=== PATIENT | female | born 1945 | race Caucasian/White ===

== ENCOUNTER 2016-10-29 14:30 | Emergency (ER) | payer MEDICARE ==
[~2016-10-29] VITALS: Ht 167.6 cm; Wt 48.1 kg
[~2016-10-29 14:30] MED LIST: ADVA500A INH; LEXA20TA PO; MORP1TAB24 IMPLANPUMP; OLAN2.5T PO; PANT40TA3 PO; PROM25TA5 PO; VENTAER INH; XANA1TAB2 PO; ZOFR4TAB3 SL
[2016-10-29 14:35] VITALS: BP 112/78; PULSE 105; RESP 16; TEMP 98.3
[2016-10-29] MEDS ORDERED: methylPREDNISolone SOD SUCC 125 MG/2 ML VIAL IVP ONE (15:15)
[2016-10-29] MEDS ORDERED: SODIUM CHLORIDE 0.9% FLUSH 5 ML FLUSH IVF PRN (15:15)
--- NOTE | 2016-10-29 15:17 | PD ---
HPI Chief Complaint: Edema Time Seen by Provider: 14:48 Travel History International Travel<30 days: No Contact w/Intl Traveler<30days: No Traveled to known affect area: No History of Present Illness HPI 71yo F with PMH of COPD on 4 L NC was sent in by PMD for ultrasound of her leg to r/o DVT. Pt has been having right lower extremity edema and throbbing for 3- 4 days. Denies any trauma she can remember. Pt also with worsening sob and chest pain since yesterday. Chest pain is bilateral, under her ribs and worst with breathing. Denies any fever, cough, n/v, abdominal pain, focal weakness and numbness. States she has history of cluster headaches and she is having one now but nothing really helps and she has it frequently. PFSH Past Medical History Arthritis: No Asthma: Yes (24 HOUR / 4 L OXYGEN ) Autoimmune Disease: No Anxiety: Yes Depression: Yes Heart Rhythm Problems: No Cancer: No Cardiovascular Problems: No High Cholesterol: No Chemotherapy: No Chest Pain: No Congestive Heart Failure: No COPD: Yes Cerebrovascular Accident: No ( unsure) Diabetes: No Endocrine: No GERD: Yes Genitourinary: Yes (bladder infection) Headaches: Yes (cluster headaches) Hiatal Hernia: No Hypertension: No Immune Disorder: No Implanted Vascular Access Dvce: Yes (MORPHINE PUMP UNKNOWN DOSING ) Kidney Stones: No Musculoskeletal: No Neurologic: Yes Psychiatric: No Reproductive: No Respiratory: Yes Myocardial Infarction: No Radiation Therapy: No Renal Failure: No Seizures: No Sickle Cell Disease: No Sleep Apnea: No Thyroid Disease: No Ulcer: No Past Surgical History Abdominal Surgery: No AICD: No Arteriovenous Shunt: No Body Medical Devices: implanted morphine pump Cardiac Surgery: No Ear Surgery: No Endocrine Surgery: No Eye Surgery: No Genitourinary Surgery: No Gynecologic Surgery: Yes (total hysterectomy) Hysterectomy: Yes Insulin Pump: No Joint Replacement: No Neurologic Surgery: Yes (craniotomy for aneurysm-CLIP ) Oral Surgery: No Pacemaker: No Thoracic Surgery: Yes (right lobectomy - BACTERIAL INFECTION) Other Surgery: Yes Social History Alcohol Use: No Tobacco Use: Yes (08/31 PPD) Substance Use: No Allergies-Medications (Allergen,Severity, Reaction): Coded Allergies: Benadryl (Verified Allergy, Severe, 10/29/16) ALL ANTIHISTAMINES Codeine (Verified Allergy, Severe, 10/29/16) Dilantin (Verified Allergy, Severe, 10/29/16) Penicillin (Verified Allergy, Severe, 10/29/16) Aubrey (Verified Allergy, Unknown, UNKNOWN, 10/29/16) Dilaudid (Verified Adverse Reaction, Severe, Respiratory Failure, 10/29/16) Patient's spouse reports that Dilaudid/hydromorphone has caused severe altered mental status and respiratory distress, even after a "small" dose. Patient's spouse unsure of the exact amount of that "small" dose. Reported Meds & Prescriptions Reported Meds & Active Scripts Active Keflex (Cephalexin) 500 Mg Cap 500 Mg PO Q6H Phenergan (Promethazine HCl) 25 Mg Tab 25 Mg PO Q6H PRN Zofran Odt (Ondansetron Odt) 4 Mg Tab 4 Mg SL Q6HR PRN Pantoprazole (Pantoprazole Sodium) 40 Mg Tab 40 Mg PO DAILY 30 Days Olanzapine 2.5 Mg Tab 2.5 Mg PO HS 30 Days Reported Morphine ER (Morphine Sulfate) 15 Mg Tab 15 Mg IMPLANPUMP CONTINUOUS Xanax (Alprazolam) 1 Mg Tab 1 Mg PO Q8H PRN Lexapro (Escitalopram Oxalate) 20 Mg Tab 20 Mg PO DAILY Ventolin Hfa 18 GM Inh (Albuterol Sulfate) 90 Mcg/Act Aer 2 Puff INH Q4H PRN Advair Diskus Inh (Fluticasone-Salmeterol Inh) 500-50 Mcg/Blist Aer 1 Puff INH BID Rinse mouth after use. Review of Systems Except as stated in HPI: all other systems reviewed are Neg Physical Exam Narrative GENERAL: 71yo F not in acute distress. SKIN: Warm and dry. HEAD: Atraumatic. Normocephalic. EYES: Pupils equal and round. No scleral icterus. No injection or drainage. ENT: No nasal bleeding or discharge. Mucous membranes pink and moist. NECK: Trachea midline. No JVD. CARDIOVASCULAR: Regular rate and rhythm. No murmur appreciated. RESPIRATORY: Expiratory wheezing bilaterally. Speaking in complete sentences. GASTROINTESTINAL: Abdomen soft, non-tender, nondistended. MUSCULOSKELETAL: RLE: +Edema in right foot to tib/fib. Distal pulses intact. Sensation intact. Mild erythema. NEUROLOGICAL: Awake and alert. No obvious cranial nerve deficits. Motor grossly within normal limits. Normal speech. PSYCHIATRIC: Appropriate mood and affect; insight and judgment normal. Data Data Last Documented VS Vital Signs Date Time Temp Pulse Resp B/P Pulse Ox O2 Delivery O2 Flow Rate FiO2 10/29/16 17:27 88 16 127/71 92 10/29/16 16:59 Nasal Cannula 2 10/29/16 14:35 98.3 Orders Complete Blood Count With Diff (10/29/16 15:09) Basic Metabolic Panel (Bmp) (10/29/16 15:09) B-Type Natriuretic Peptide (10/29/16 15:09) Act Partial Throm Time (Ptt) (10/29/16 15:09) Prothrombin Time / Inr (Pt) (10/29/16 15:09) Ckmb (Isoenzyme) Profile (10/29/16 15:09) Troponin I (10/29/16 15:09) Arterial Blood Gas (Abg) (10/29/16 15:09) Iv Access Insert/Monitor (10/29/16 15:09) Electrocardiogram (10/29/16 15:09) Ecg Monitoring (10/29/16 15:09) Oximetry (10/29/16 15:09) Oxygen Administration (10/29/16 15:09) Chest, Single Ap (10/29/16 15:09) Sodium Chloride 0.9% Flush (Ns Flush) (10/29/16 15:15) Methylprednisolone So Succ Inj (Solumedr (10/29/16 15:15) Albuterol-Ipratropium Neb (Duoneb Neb) (10/29/16 15:15) Us Leg Venous Doppler (10/29/16 ) Potassium Chloride (Kcl) (10/29/16 17:15) Cephalexin (Keflex) (10/29/16 17:15) Labs Laboratory Tests Test 10/29/16 10/29/16 15:30 16:05 White Blood Count 7.3 TH/MM3 Red Blood Count 4.02 MIL/MM3 Hemoglobin 12.0 GM/DL Hematocrit 38.0 % Mean Corpuscular Volume 94.6 FL Mean Corpuscular Hemoglobin 29.9 PG Mean Corpuscular Hemoglobin 31.6 % Concent Red Cell Distribution Width 15.4 % Platelet Count 130 TH/MM3 Mean Platelet Volume 9.6 FL Neutrophils (%) (Auto) 61.6 % Lymphocytes (%) (Auto) 22.6 % Monocytes (%) (Auto) 13.6 % Eosinophils (%) (Auto) 1.3 % Basophils (%) (Auto) 0.9 % Neutrophils # (Auto) 4.5 TH/MM3 Lymphocytes # (Auto) 1.6 TH/MM3 Monocytes # (Auto) 1.0 TH/MM3 Eosinophils # (Auto) 0.1 TH/MM3 Basophils # (Auto) 0.1 TH/MM3 CBC Comment DIFF FINAL Differential Comment Prothrombin Time 10.2 SEC Prothromb Time International 0.9 RATIO Ratio Activated Partial 25.1 SEC Thromboplast Time Sodium Level 143 MEQ/L Potassium Level 3.4 MEQ/L Chloride Level 96 MEQ/L Carbon Dioxide Level 43.6 MEQ/L Anion Gap 3 MEQ/L Blood Urea Nitrogen 6 MG/DL Creatinine 0.51 MG/DL Estimat Glomerular Filtration 120 ML/MIN Rate Random Glucose 81 MG/DL Calcium Level 8.4 MG/DL Total Creatine Kinase 59 U/L Troponin I LESS THAN 0.02 NG/ML B-Type Natriuretic Peptide 46 PG/ML Blood Gas Puncture Site RT BRACHIAL Blood Gas Patient Temperature 98.6 Blood Gas HCO3 44 mmol/L Blood Gas Base Excess 16.9 mmol/L Blood Gas Oxygen Saturation 94 % Arterial Blood pH 7.33 Arterial Blood Partial 86 mmHG Pressure CO2 Arterial Blood Partial 156 mmHG Pressure O2 Arterial Blood Oxygen Content 14.3 Vol % Arterial Blood 4.8 % Carboxyhemoglobin Arterial Blood Methemoglobin 1.6 % Blood Gas Hemoglobin 10.6 G/DL Oxygen Delivery Device NASAL CANNULA Blood Gas Liter Flow 4 L/M MDM Medical Decision Making Medical Screen Exam Complete: Yes Emergency Medical Condition: Yes Interpretation(s) EKG: NSR 91bpm. Normal axis. No ST segment elevation or depression. Differential Diagnosis DVT vs. Cellulitis COPD exacerbation vs. Pneumonia vs. Atypical chest pain vs. PE Narrative Course 71yo F with lung disease s/p resection because they thought it was cancer in 2007 but it was not. Pt has a morphine pump since after the lung resection. Pt has COPD and is on 4 liters of NC at home. She does complain of sob that has been worst since yesterday and has wheezing bilaterally on exam. Pt also with right leg swelling for 3-[address] Anna who sent her here for ultrasound and further evaluation because [facility] could not get ultrasound stat today. CXR showed interstitial lung disease with bullous change in the apices. No focal infiltrate. Pt was seen at end of my shift so sign out to next team to follow up labs, ultrasound and reevaluate. Scripts Cephalexin (Keflex)500 Mg [id number] Mg PO Q6H #28 CAP Ref 0 Prov:Zac Webster MD 10/29/16 Mary Martin DO Oct 29, 2016 15:17
--- NOTE | 2016-10-29 15:30 | RADHPO ---
EXAM DATE/TIME: 10/29/2016 15:16 [facility] COMPARISON: CHEST PA & LAT, August 10, 2016, 21:22. INDICATIONS : Short of breath. MEDICAL HISTORY : None. SURGICAL HISTORY : None. ENCOUNTER: Initial ACUITY: 1 week PAIN SCORE: 1/10 LOCATION: Bilateral chest FINDINGS: A single view of the chest demonstrates prominent density in the right hilum unchanged since July . Broad leftward scoliosis. Tortuous aorta. Chronic interstitial lung disease and postoperative suazo e the right chest unchanged. The cardiomediastinal contours are unremarkable. Osseous structures a re intact. CONCLUSION: Interstitial lung disease with bullous change in the apices. No focal infiltrate. Arya Atwood MD on October 29, 2016 at 15:27 Board Certified Radiologist. This report was verified electronically.
[2016-10-29 15:48] LABS: AUTOMATED NEUTROPHIL # 4.5 TH/MM3 (1.8-7.7); BASOPHIL # 0.1 TH/MM3 (0-0.2); BASOPHIL % 0.9 % (0.0-2.0); EOSINOPHIL # 0.1 TH/MM3 (0-0.4); EOSINOPHIL % 1.3 % (0.0-4.0); HEMO FLAGS DIFF FINAL; LYMPH % 22.6 % (9.0-44.0); LYMPHOCYTE # 1.6 TH/MM3 (1.0-4.8); MEAN CELL VOLUME 94.6 FL (80.0-100.0); MEAN CORPUSCULAR HEMOGLOBIN 29.9 PG (27.0-34.0); MEAN CORPUSCULAR HGB CONC 31.6 % (32.0-36.0); MONO % 13.6 % (0.0-8.0); NEUT % 61.6 % (16.0-70.0); PLATELET COUNT 130 TH/MM3 (150-450); RED BLOOD COUNT 4.02 MIL/MM3 (4.00-5.30); RED CELL DISTRIBUTION WIDTH 15.4 % (11.6-17.2); WHITE BLOOD COUNT 7.3 TH/MM3 (4.0-11.0)
[2016-10-29] MEDS: RESP: ALBUTEROL 2.5 MG/IPRATROPIUM 0.5 MG NEB (SCH) INH (15:52)
[2016-10-29 15:56] LABS: CHLORIDE 96 MEQ/L (98-107); POTASSIUM 3.4 MEQ/L (3.5-5.1); SODIUM (NA) 143 MEQ/L (136-145)
[2016-10-29 16:00] LABS: ANION GAP 3 MEQ/L (5-15); BICARBONATE 43.6 MEQ/L (21.0-32.0); BLOOD UREA NITROGEN 6 MG/DL (7-18)
[2016-10-29 16:01] LABS: APTT (PATIENT) 25.1 SEC (24.3-30.1); INTERNATIONAL NORMALIZED RATIO 0.9 RATIO; PROTHROMBIN TIME - PATIENT 10.2 SEC (9.8-11.6)
[2016-10-29 16:03] LABS: GLOMERULAR FILTRATION RATE 120 ML/MIN (>89)
[2016-10-29 16:12] LABS: BLOOD GAS BASE EXCESS 16.9 mmol/L (-2-2); BLOOD GAS CARBOXYHEMOGLOBIN 4.8 % (0-4); BLOOD GAS HCO3 44 mmol/L (22-26); BLOOD GAS METHEMOGLOBIN 1.6 % (0-2); BLOOD GAS O2 HGB SATURATION 94 % (90-100); BLOOD GAS OXYGEN CONTENT 14.3 Vol % (12.0-20.0); BLOOD GAS PCO2 86 mmHG (38-42); BLOOD GAS PO2 156 mmHG (61-120); BLOOD GAS TOTAL HGB 10.6 G/DL (12.0-16.0); CRITICAL VALUE YES; TEMP CORR TO 98.6
[2016-10-29 16:13] LABS: DRAW SITE RT BRACHIAL; LITER FLOW 4 L/M; NUMBER OF ARTERIAL PUNCTURES 2; OXYGEN DEVICE NASAL CANNULA; STAT YES; ULNAR PULSE PRESENT
[2016-10-29 16:14] LABS: CREATINE KINASE 59 U/L (26-192)
--- NOTE | 2016-10-29 16:46 | RADHPO ---
EXAM DATE/TIME: 10/29/2016 16:27 [facility] COMPARISON: No previous studies available for comparison. INDICATIONS : Right leg swelling. MEDICAL HISTORY : Aneurysm, intracranial. Emphysema. Osteoporosis. Glaucoma. Chronic root canals. CVA. COPD. Asthma. Dyspnea. GERD. UTI. Depression. Anxiety. SURGICAL HISTORY : Craniotomy. Hysterectomy. ENCOUNTER: Initial ACUITY: 3 days PAIN SCORE: 0/10 LOCATION: Right leg. TECHNIQUE: Venous ultrasound of the leg was performed from the inguinal ligament to the proximal calf. Real-jessica e, color Doppler and spectral tracing, compression and augmentation techniques were used. FINDINGS: There is normal compressibility of the deep venous system from the inguinal region to the proximal ca lf. No echogenic clot is seen in the lumen of the common femoral, femoral, popliteal, and posterior tibial veins. There is a normal response of the venous system to proximal and distal augmentation an d respiration. CONCLUSION: Normal examination. Arya Atwood MD on October 29, 2016 at 16:45 Board Certified Radiologist. This report was verified electronically.
[2016-10-29 16:59] VITALS: O2SAT 96
[2016-10-29] MEDS ORDERED: POTASSIUM CHLORIDE 20 MEQ CONTROLLED RELEASE TAB PO ONE (17:15)
[2016-10-29] MEDS ORDERED: CEPHALEXIN MONOHYDRATE 500 MG CAP PO ONE (17:15)
[2016-10-29] MEDS ORDERED: CEPH-460 PO (17:20)
--- NOTE | 2016-10-29 17:21 | PD ---
HPI Chief Complaint: Edema Time Seen by Provider: 17:20 Travel History International Travel<30 days: No Contact w/Intl Traveler<30days: No Traveled to known affect area: No History of Present Illness HPI This 71-year-old female was sent by Dr. Rick Nichole for an ultrasound of her right leg. She developed some redness and swelling of the leg. She has no history of DVT. She does have a history of interstitial lung disease and hypercarbic respiratory failure. She uses oxygen at home. She also has migraine headaches. He was seen initially at Dr. Martin. Ultrasound is negative. Blood gas was done because her oximeter was not measuring well and showed a pH of 7.3 to PCO2 of 86 and PO2 of 156. This is similar to previous gases. The normal pH with a marked elevation of PCO2 suggests this is chronic. The patient has been treated with nebs and Solu-Medrol. She feels she is at her baseline as far as breathing goes. The ultrasound has been read as negative. Examination there is some redness of the lower leg and a small scab on the middle toe this may represent an area of cellulitis and she'll be treated with Keflex. Admission was offered but the patient wishes to go home. She states that she is breathing like she normally does [facility] Past Medical History Arthritis: No Asthma: Yes (24 HOUR / 4 L OXYGEN ) Autoimmune Disease: No Anxiety: Yes Depression: Yes Heart Rhythm Problems: No Cancer: No Cardiovascular Problems: No High Cholesterol: No Chemotherapy: No Chest Pain: No Congestive Heart Failure: No COPD: Yes Cerebrovascular Accident: No ( unsure) Diabetes: No Endocrine: No GERD: Yes Genitourinary: Yes (bladder infection) Headaches: Yes (cluster headaches) Hiatal Hernia: No Hypertension: No Immune Disorder: No Implanted Vascular Access Dvce: Yes (MORPHINE PUMP UNKNOWN DOSING ) Kidney Stones: No Musculoskeletal: No Neurologic: Yes Psychiatric: No Reproductive: No Respiratory: Yes Myocardial Infarction: No Radiation Therapy: No Renal Failure: No Seizures: No Sickle Cell Disease: No Sleep Apnea: No Thyroid Disease: No Ulcer: No Past Surgical History Abdominal Surgery: No AICD: No Arteriovenous Shunt: No Body Medical Devices: implanted morphine pump Cardiac Surgery: No Ear Surgery: No Endocrine Surgery: No Eye Surgery: No Genitourinary Surgery: No Gynecologic Surgery: Yes (total hysterectomy) Hysterectomy: Yes Insulin Pump: No Joint Replacement: No Neurologic Surgery: Yes (craniotomy for aneurysm-CLIP ) Oral Surgery: No Pacemaker: No Thoracic Surgery: Yes (right lobectomy - BACTERIAL INFECTION) Other Surgery: Yes Social History Alcohol Use: No Tobacco Use: Yes (08/31 PPD) Substance Use: No Allergies-Medications (Allergen,Severity, Reaction): Coded Allergies: Benadryl (Verified Allergy, Severe, 10/29/16) ALL ANTIHISTAMINES Codeine (Verified Allergy, Severe, 10/29/16) Dilantin (Verified Allergy, Severe, 10/29/16) Penicillin (Verified Allergy, Severe, 10/29/16) Snowslip (Verified Allergy, Unknown, UNKNOWN, 10/29/16) Dilaudid (Verified Adverse Reaction, Severe, Respiratory Failure, 10/29/16) Patient's spouse reports that Dilaudid/hydromorphone has caused severe altered mental status and respiratory distress, even after a "small" dose. Patient's spouse unsure of the exact amount of that "small" dose. Reported Meds & Prescriptions Reported Meds & Active Scripts Active Phenergan (Promethazine HCl) 25 Mg Tab 25 Mg PO Q6H PRN Zofran Odt (Ondansetron Odt) 4 Mg Tab 4 Mg SL Q6HR PRN Pantoprazole (Pantoprazole Sodium) 40 Mg Tab 40 Mg PO DAILY 30 Days Olanzapine 2.5 Mg Tab 2.5 Mg PO HS 30 Days Reported Morphine ER (Morphine Sulfate) 15 Mg Tab 15 Mg IMPLANPUMP CONTINUOUS Xanax (Alprazolam) 1 Mg Tab 1 Mg PO Q8H PRN Lexapro (Escitalopram Oxalate) 20 Mg Tab 20 Mg PO DAILY Ventolin Hfa 18 GM Inh (Albuterol Sulfate) 90 Mcg/Act Aer 2 Puff INH Q4H PRN Advair Diskus Inh (Fluticasone-Salmeterol Inh) 500-50 Mcg/Blist Aer 1 Puff INH BID Rinse mouth after use. Review of Systems ROS Limitations: Other: (see Dr. Martin's dictation) Physical Exam Narrative Right lower leg does have some erythema and soft tissue swelling. There is no lymphangitis or lymphadenopathy. There are good dorsalis pedal pulse. There is a small scab on the right third toe. Lungs show occasional wheeze, diminished breath sounds bilaterally Data Data Last Documented VS Vital Signs Date Time Temp Pulse Resp B/P Pulse Ox O2 Delivery O2 Flow Rate FiO2 10/29/16 16:59 96 Nasal Cannula 2 10/29/16 14:35 98.3 105 16 112/78 Orders Complete Blood Count With Diff (10/29/16 15:09) Basic Metabolic Panel (Bmp) (10/29/16 15:09) B-Type Natriuretic Peptide (10/29/16 15:09) Act Partial Throm Time (Ptt) (10/29/16 15:09) Prothrombin Time / Inr (Pt) (10/29/16 15:09) Ckmb (Isoenzyme) Profile (10/29/16 15:09) Troponin I (10/29/16 15:09) Arterial Blood Gas (Abg) (10/29/16 15:09) Iv Access Insert/Monitor (10/29/16 15:09) Electrocardiogram (10/29/16 15:09) Ecg Monitoring (10/29/16 15:09) Oximetry (10/29/16 15:09) Oxygen Administration (10/29/16 15:09) Chest, Single Ap (10/29/16 15:09) Sodium Chloride 0.9% Flush (Ns Flush) (10/29/16 15:15) Methylprednisolone So Succ Inj (Solumedr (10/29/16 15:15) Albuterol-Ipratropium Neb (Duoneb Neb) (10/29/16 15:15) Us Leg Venous Doppler (10/29/16 ) Potassium Chloride (Kcl) (10/29/16 17:15) Cephalexin (Keflex) (10/29/16 17:15) Labs Laboratory Tests Test 10/29/16 10/29/16 15:30 16:05 White Blood Count 7.3 TH/MM3 Red Blood Count 4.02 MIL/MM3 Hemoglobin 12.0 GM/DL Hematocrit 38.0 % Mean Corpuscular Volume 94.6 FL Mean Corpuscular Hemoglobin 29.9 PG Mean Corpuscular Hemoglobin 31.6 % Concent Red Cell Distribution Width 15.4 % Platelet Count 130 TH/MM3 Mean Platelet Volume 9.6 FL Neutrophils (%) (Auto) 61.6 % Lymphocytes (%) (Auto) 22.6 % Monocytes (%) (Auto) 13.6 % Eosinophils (%) (Auto) 1.3 % Basophils (%) (Auto) 0.9 % Neutrophils # (Auto) 4.5 TH/MM3 Lymphocytes # (Auto) 1.6 TH/MM3 Monocytes # (Auto) 1.0 TH/MM3 Eosinophils # (Auto) 0.1 TH/MM3 Basophils # (Auto) 0.1 TH/MM3 CBC Comment DIFF FINAL Differential Comment Prothrombin Time 10.2 SEC Prothromb Time International 0.9 RATIO Ratio Activated Partial 25.1 SEC Thromboplast Time Sodium Level 143 MEQ/L Potassium Level 3.4 MEQ/L Chloride Level 96 MEQ/L Carbon Dioxide Level 43.6 MEQ/L Anion Gap 3 MEQ/L Blood Urea Nitrogen 6 MG/DL Creatinine 0.51 MG/DL Estimat Glomerular Filtration 120 ML/MIN Rate Random Glucose 81 MG/DL Calcium Level 8.4 MG/DL Total Creatine Kinase 59 U/L Troponin I LESS THAN 0.02 NG/ML B-Type Natriuretic Peptide 46 PG/ML Blood Gas Puncture Site RT BRACHIAL Blood Gas Patient Temperature 98.6 Blood Gas HCO3 44 mmol/L Blood Gas Base Excess 16.9 mmol/L Blood Gas Oxygen Saturation 94 % Arterial Blood pH 7.33 Arterial Blood Partial 86 mmHG Pressure CO2 Arterial Blood Partial 156 mmHG Pressure O2 Arterial Blood Oxygen Content 14.3 Vol % Arterial Blood 4.8 % Carboxyhemoglobin Arterial Blood Methemoglobin 1.6 % Blood Gas Hemoglobin 10.6 G/DL Oxygen Delivery Device NASAL CANNULA Blood Gas Liter Flow 4 L/M MDM Medical Decision Making Medical Screen Exam Complete: Yes Emergency Medical Condition: Yes Medical Record Reviewed: Yes Differential Diagnosis Differential includes cellulitis, interstitial lung disease, DVT Narrative Course Ultrasound is negative for DVT. Patient be treated for cellulitis with Keflex. On reevaluation she is alert. She says that she is breathing the way she normally does and wishes to be released. Diagnosis Primary Impression: Cellulitis of right lower leg Scripts Cephalexin (Keflex)500 Mg [id number] Mg PO Q6H #28 CAP Ref 0 Prov:Zac Webster MD 10/29/16 Disposition: 01 DISCHARGE HOME Condition: Stable Zac Webster MD Oct 29, 2016 17:21
[2016-10-29 17:27] VITALS: BP 127/71; PULSE 88; RESP 16; O2SAT 92
--- NOTE | 2016-10-30 23:31 | EKG ---
Date Performed: 10/29/2016 Time Performed: 15:26:28 PTAGE: 71 years EKG: Sinus rhythm Normal ECG PREVIOUS TRACING : 06/30/2016 15.06 DOCTOR: Cheryl Morejon Interpretating Date/Time 10/30/2016 23:27:58
== END 2016-10-29 17:52 | disposition home or self-care (01) ==
LOC: PHED 14:30
DX: L03.115 Cellulitis of right lower limb (principal); J44.9 Chronic obstructive pulmonary disease, unspecified; J45.909 Unspecified asthma, uncomplicated; Z99.81 Dependence on supplemental oxygen; F17.210 Nicotine dependence, cigarettes, uncomplicated; Z79.899 Other long term (current) drug therapy
CPT/HCPCS: 36600; 71010; 80048; 82550; 82805; 83880; 84484; 85025; 85610; 85730; 93005; 93971; 94640; 94664; 96374; 99285; J2930